=== PATIENT | female | born 1970 | race Two or more races ===

== ENCOUNTER 2017-09-26 11:31 | Outpatient (CLI) | payer OTHER | END 2017-09-26 15:00 | disposition home or self-care (01) | LOC: MAMO-SONO 11:31 | DX: N64.4 Mastodynia (principal); N83.00 Follicular cyst of ovary, unspecified side; N80.9 Endometriosis, unspecified; D25.9 Leiomyoma of uterus, unspecified; Z12.31 Encounter for screening mammogram for malignant neoplasm of breast; M81.0 Age-related osteoporosis without current pathological fracture; Z13.820 Encounter for screening for osteoporosis ==

== ENCOUNTER 2017-09-26 12:55 | Outpatient (CLI) | payer OTHER | END 2017-09-26 13:15 | disposition home or self-care (01) | LOC: NUCLEAR 12:55 | DX: M81.0 Age-related osteoporosis without current pathological fracture (principal); Z13.820 Encounter for screening for osteoporosis; N64.4 Mastodynia; N83.00 Follicular cyst of ovary, unspecified side; N80.9 Endometriosis, unspecified; D25.9 Leiomyoma of uterus, unspecified; N63.10 Unspecified lump in the right breast, unspecified quadrant; N63.11 Unspecified lump in the right breast, upper outer quadrant ==

== ENCOUNTER → 2018-12-15 | Outpatient (CLI) | payer OTHER | END | disposition home or self-care (01) | LOC: NUCLEAR 11:30 | DX: M81.0 Age-related osteoporosis without current pathological fracture (principal) ==

== ENCOUNTER → 2018-12-15 | Outpatient (CLI) | payer OTHER | END | disposition home or self-care (01) | LOC: MAMO-SONO 10:10 → SONOGRAMA 10:10 → MAMO-SONO 11:36 | DX: E03.8 Other specified hypothyroidism (principal); Z12.31 Encounter for screening mammogram for malignant neoplasm of breast; E04.1 Nontoxic single thyroid nodule; M81.0 Age-related osteoporosis without current pathological fracture; Z13.820 Encounter for screening for osteoporosis; N64.4 Mastodynia; N80.8 Other endometriosis; N83.00 Follicular cyst of ovary, unspecified side; D25.9 Leiomyoma of uterus, unspecified; N63.10 Unspecified lump in the right breast, unspecified quadrant; N63.20 Unspecified lump in the left breast, unspecified quadrant ==

== ENCOUNTER 2020-06-23 11:11 | Outpatient (CLI) | payer OTHER | END 2020-06-23 11:39 | disposition home or self-care (01) | LOC: NUCLEAR 11:11 | PROVIDERS: ATTEND Internal Medicine | DX: M81.0 Age-related osteoporosis without current pathological fracture (principal) ==

== ENCOUNTER → 2020-06-23 | Outpatient (CLI) | payer OTHER | END | disposition home or self-care (01) | LOC: MAMO-SONO 09:45 | PROVIDERS: ATTEND Internal Medicine | DX: Z12.31 Encounter for screening mammogram for malignant neoplasm of breast (principal); N60.11 Diffuse cystic mastopathy of right breast; N60.12 Diffuse cystic mastopathy of left breast; M81.0 Age-related osteoporosis without current pathological fracture; N80.8 Other endometriosis; D25.9 Leiomyoma of uterus, unspecified ==

== ENCOUNTER 2022-08-15 09:15 | Outpatient (CLI) | payer OTHER | END 2022-08-15 10:16 | disposition home or self-care (01) | LOC: MAMO-SONO 09:15 | DX: Z12.31 Encounter for screening mammogram for malignant neoplasm of breast (principal); N63.0 Unspecified lump in unspecified breast; N64.4 Mastodynia; N60.11 Diffuse cystic mastopathy of right breast; N60.12 Diffuse cystic mastopathy of left breast; N83.00 Follicular cyst of ovary, unspecified side; N80.9 Endometriosis, unspecified; D25.9 Leiomyoma of uterus, unspecified; R74.9 Abnormal serum enzyme level, unspecified; K76.9 Liver disease, unspecified ==

== ENCOUNTER 2022-08-15 11:21 | Outpatient (CLI) | payer OTHER | END 2022-08-15 11:34 | disposition home or self-care (01) | LOC: NUCLEAR 11:21 | DX: M81.0 Age-related osteoporosis without current pathological fracture (principal) ==

== ENCOUNTER → 2024-09-28 | Outpatient (CLI) | payer OTHER | END | disposition home or self-care (01) | LOC: RAD 09:32 | DX: M54.2 Cervicalgia (principal); M54.6 Pain in thoracic spine; M54.50 Low back pain, unspecified; N63 Unspecified lump in breast; Z12.31 Encounter for screening mammogram for malignant neoplasm of breast; N64.4 Mastodynia; N83.00 Follicular cyst of ovary, unspecified side; N80.9 Endometriosis, unspecified; R10.2 Pelvic and perineal pain; D25.9 Leiomyoma of uterus, unspecified ==